=== PATIENT | male | born 1960 | race Caucasian/White ===

== ENCOUNTER → 2022-06-23 08:05 | Outpatient (CLI) | payer OTHER, SELFPAY ==
[2022-06-23 19:22] LABS: COVID19 - ORCAS (NP or Nasal) Negative (Negative)
== END ==
PROVIDERS: Family Provider Family Medicine; PCP Physician Assistant; Visit Provider Physician Assistant
DX: Z20.822 Contact with and (suspected) exposure to COVID-19 (principal); Z01.812 Encounter for preprocedural laboratory examination
CPT/HCPCS: U0003

== ENCOUNTER → 2022-07-18 10:30 | Outpatient (CLI) | payer OTHER, SELFPAY ==
[2022-07-18 19:21] LABS: Albumin 4.1 g/dL (3.5-5.0); BUN Creatinine Ratio 17.4 (6-22); Blood Urea Nitrogen 16 mg/dL (9-20); Calcium 9.2 mg/dL (8.4-10.2); Carbon Dioxide 26 mmol/L (22-32); Chloride 102 mmol/L (98-107); Estimated Glomerular Filt Rate > 60 mL/min (>60); Glucose 104 mg/dL (80-110); HEMOLYSIS < 15 (0-50); Potassium 4.3 mmol/L (3.4-5.1); Sodium 138 mmol/L (137-145)
[2022-07-18 19:23] LABS: Add Manual Diff / Slide Review NO; Basophils Absolute Auto 0 /uL (0-100); Basophils Percent Auto 0.3 % (0-2); Eosinophils Absolute Auto 100 /uL (0-450); Eosinophils Percent Auto 1.6 % (2-4); Hematocrit 36.1 % (41-53); Hemoglobin 12.1 g/dL (13.5-17.5); Lymphocytes Absolute Auto 1600 /uL (1100-4500); Lymphocytes Percent Auto 17.6 % (25-40); Mean Corpuscular HGB Conc 33.4 % (30-36); Mean Corpuscular Hemoglobin 31.3 PG (26-34); Mean Corpuscular Volume 93.6 fL (80-100); Monocytes Absolute Auto 600 /uL (0-900); Monocytes Percent Auto 6.9 % (3-14); Neutrophils Absolute Auto 6500 /uL (1500-7000); Neutrophils Percent Auto 73.6 % (50-75); Platelet Count 220 X10^3/uL (150-400); Red Blood Cell Count 3.86 X10^6/uL (4.5-5.9); Red Cell Distribution Width 14.4 % (11.6-14.8); White Blood Cell Count 8.8 X10^3/uL (4.5-11.0)
[2022-07-18 20:07] LABS: Creatinine Urine Random 42.7 mg/dL; Protein (Total) Urine Random 8 mg/dL (0-12); Protein Creatinine Ratio Urine 0.18 GRAM/24H
[2022-07-18 20:20] LABS: Appearance Urine UA CLEAR; Bilirubin Urine UA NEGATIVE (NEGATIVE); Color Urine UA YELLOW; Glucose Urine UA NEGATIVE (Negative); Ketones Urine UA NEGATIVE (NEGATIVE); Leukocyte Esterase Urine UA NEGATIVE (NEGATIVE); Nitrite Urine UA NEGATIVE (Negative); Occult Blood Urine UA NEGATIVE (Negative); Protein Urine UA NEGATIVE (Negative); Specific Gravity Urine UA <=1.005 (1.000-1.035); Urobilinogen Urine UA 0.2 E.U./dL (0.2)
[2022-07-18 20:25] LABS: Bacteria Urine None Seen; Culture Indicated Urine Cult Not Indicated; RBC Urine None Seen (0-5/HPF); Squamous Epithelial Cell Urine None Seen (0-5/HPF); WBC Urine 0-1/HPF (0-5/HPF)
== END ==
PROVIDERS: Family Provider Family Medicine; PCP Physician Assistant; Visit Provider Internal Medicine
DX: N17.9 Acute kidney failure, unspecified (principal)
CPT/HCPCS: 80069; 81001; 82570; 84156; 85025

== ENCOUNTER 2022-08-10 08:30 | Outpatient (RCR) | payer OTHER, SELFPAY | END 2022-08-10 10:30 | LOC: CAR 08:30 | PROVIDERS: Family Provider Family Medicine; PCP Physician Assistant; Referring Provider Internal Medicine; Visit Provider Internal Medicine | DX: I21.3 ST elevation (STEMI) myocardial infarction of unspecified site (principal) | CPT/HCPCS: 93798 ==

== ENCOUNTER → 2022-08-31 14:12 | Outpatient (CLI) | payer OTHER, SELFPAY ==
[2022-08-31 18:42] LABS: BUN Creatinine Ratio 17.6 (6-22); Blood Urea Nitrogen 15 mg/dL (9-20); Calcium 9.1 mg/dL (8.4-10.2); Carbon Dioxide 26 mmol/L (22-32); Chloride 104 mmol/L (98-107); Estimated Glomerular Filt Rate > 60 mL/min (>60); Glucose 113 mg/dL (80-110); HEMOLYSIS < 15 (0-50); Phosphorous 3.8 mg/dL (2.3-3.7); Potassium 4.2 mmol/L (3.4-5.1); Sodium 140 mmol/L (137-145)
== END ==
PROVIDERS: Family Provider Family Medicine; PCP Physician Assistant; Visit Provider Internal Medicine
DX: N17.9 Acute kidney failure, unspecified (principal); N18.9 Chronic kidney disease, unspecified; Z95.5 Presence of coronary angioplasty implant and graft
CPT/HCPCS: 80069

== ENCOUNTER → 2023-07-25 10:27 | Outpatient (CLI) | payer OTHER, SELFPAY ==
[2023-07-25 19:32] LABS: Cholesterol 120 mg/dL (140-199); HDL Cholesterol 43 mg/dL (40-60); LDL Cholesterol Calculated 48 mg/dL (<100); Triglycerides 145 mg/dL (35-150)
[2023-07-25 19:37] LABS: High Sensitivity CRP - Cardiac 1.1 mg/L (1.0-3.0)
== END ==
PROVIDERS: Family Provider Family Medicine; PCP Physician Assistant; Visit Provider Internal Medicine Cardiovascular Disease
DX: I25.10 Atherosclerotic heart disease of native coronary artery without angina pectoris (principal)
CPT/HCPCS: 80061; 86140

== ENCOUNTER 2025-06-06 14:09 | Emergency (ER) | payer MEDICARE, SELFPAY ==
[2025-06-06] VITALS (8 sets, daily range): BP systolic 128–129; BP diastolic 62–78; PULSE 49–60; RESP 18; TEMP 36.2; O2SAT 97–100; BMI 26.6
--- NOTE | 2025-06-06 14:26 | ED_ITS ---
HPI - Male Genitourinary General Chief complaint: Recheck/Abnormal Lab/Rx Stated complaint: 4days post prostate bx; incontinence; wobbly Time Seen by Provider: 06/06/25 14:15 Source: patient Mode of arrival: Ambulatory History of Present Illness HPI Narrative: 64y M hx cad x 1 stent, s/p prostate biopsy this past Sunday started to develop chills Sunday checked out by EMS with normal VS and did not see anyone. This restarted again despite being in hot tub twice to warm up. Pt denies fever, n/v/d, cough, sorethroat, chest, abd, back pain, sob, louis, or sick contacts. No UTI symptoms. Other than what is stated 14 pt ROS is negative. Related Data Previous Rx's ?Medication ?Instructions ?Recorded nitrofurantoin 100 mg PO Q12H 5 days #10 ca ps 06/06/25 monohydrate/macrocrystals 100 mg capsule (Macrobid) Allergies Allergy/AdvReac Type Severity Reaction Status Date / Time No Known Drug Allergies Allergy Verified 05/30/22 17:10 Review of Systems Review of Systems ROS Unobtainable: All systems reviewed & are unremarkable except as noted in HPI and below Patient History Medical History Cardiac arrest Renal failure (ARF), acute on chronic Surgical History Stented coronary artery Exam Narrative Exam Narrative: GENERAL: [64] year old patient appears stated age. Well-developed patient, in mild distress. HEAD: Atraumatic. Normocephalic. EYES: Pupils equal round and reactive. Extraocular motions intact. No scleral icterus. No injection or drainage. ENT: Nose without bleeding, purulent drainage. Throat without erythema, tonsillar hypertrophy or exudate. Airway patent. NECK: Trachea midline. Non tender CARDIOVASCULAR: Regular rate and rhythm without murmurs, gallops, or rubs. RESPIRATORY: Clear to auscultation. Breath sounds equal bilaterally. No wheezes, rales, or rhonchi. GASTROINTESTINAL: Abdomen soft, non-tender, nondistended. EXTREMITIES: No edema or joint tenderness. BACK: Nontender without deformity or crepitance. No flank tenderness. NEURO: AOx3. SKIN: No rash or erythema of visible areas Initial Vital Signs Initial Vital Signs: Vital Signs Pulse Rate 60 06/06/25 14:15 Pulse Oximetry 100 06/06/25 14:15 Course Orders Ordered: ED Orders 06/06/25 14:37 CXR [XR chest 2V] Stat 06/06/25 14:42 CBC Auto Diff [Complete Blood Count AUTO DIFF] Stat CMP [Comprehensive Metabolic Panel] Stat 06/06/25 14:50 Covid-19 + FLU A/B + RSV - PCR Stat 06/06/25 15:43 Urinalysis and Microscopic Stat Urine Culture Stat Discontinued Medications Lactated Ringer's (Lactated Ringers) 1,000 mls @ 1,000 mls/hr IV BOLUS ONE Stop: 06/06/25 15:39 Last Admin: 06/06/25 15:02 Dose: 1,000 mls/hr Documented By: MIRIAM Vital Signs Vital signs: Vital Signs - 8 hr 06/06/25 14:15 06/06/25 14:16 06/06/25 14:16 Temperature Pulse Rate 60 54 L Respiratory Rate Blood Pressure 128/62 Pulse Oximetry 100 100 Oxygen Delivery Method 06/06/25 14:21 06/06/25 14:30 Temperature 97.2 F L Pulse Rate 58 L 57 L Respiratory Rate 18 Blood Pressure 128/62 Pulse Oximetry 100 100 Oxygen Delivery Method Room Air MDM - Male Genitourinary Lab Data 06/06/25 14:42 06/06/25 14:42 Labs: Lab Results 06/06/25 06/06/25 06/06/25 Range/Units 14:42 14:50 15:43 WBC 4.8 (4.5-11.0) X10^3/uL RBC 4.62 (4.5-5.9) X10^6/uL Hgb 14.4 (13.5-17.5) g/dL Hct 41.8 (41-53) % MCV 90.6 (80-100) fL MCH 31.1 (26-34) PG MCHC 34.4 (30-36) % RDW 13.8 (11.6-14.8) % Plt Count 107 L (150-400) X10^3/uL Neut % (Auto) 61.3 (50-75) % Lymph % (Auto) 16.5 L (25-40) % [place] % (Auto) 20.2 H (3-14) % Eos % (Auto) 1.6 L (2-4) % Baso % (Auto) 0.4 (0-2) % Neut # (Auto) 2900 (5494-3326) /uL Lymph # (Auto) 800 L (9868-5715) /uL Cooper # (Auto) 1000 H (0-900) /uL Eos # (Auto) 100 (0-450) /uL Baso # (Auto) 0 (0-100) /uL Sodium 134 L (137-145) mmol/L Potassium 3.4 (3.4-5.1) mmol/L Chloride 99 (98-107) mmol/L Carbon Dioxide 29 (22-32) mmol/L BUN 15 (9-20) mg/dL Creatinine 0.78 (0.66-1.25) mg/dL Estimated GFR > 60 (>60) mL/min BUN/Creatinine Ratio 19.2 (6-22) Glucose 120 H (70-99) mg/dL Calcium 8.8 (8.4-10.2) mg/dL Total Bilirubin 0.6 (0.2-1.3) mg/dL AST 44 (17-59) IU/L ALT 28 (<50) IU/L Alkaline Phosphatase 66 (38-126) U/L Total Protein 6.8 (6.3-8.2) g/dL Albumin 4.0 (3.5-5.0) g/dL Globulin 2.8 (1.7-4.1) g/dL Albumin/Globulin Ratio 1.4 (1.0-2.8) Urine Color Dark yellow Urine Appearance Slightly cloudy Urine pH 6.5 (4.5-8.0) Ur Specific [place] 1.015 (1.000-1.035) Urine Protein Trace H (Negative) Urine Glucose (UA) Negative (Negative) g/dL Urine Ketones Negative (NEGATIVE) Urine Occult Blood 3+ H (Negative) Urine Nitrate Negative (Negative) Urine Bilirubin Negative (NEGATIVE) Urine Urobilinogen 1.0 (0.2) E.U./dL Ur Leukocyte Esterase 1+ H (NEGATIVE) Urine RBC 30-100/hpf H (0-5/HPF) Urine WBC 10-30/hpf H (0-5/HPF) Ur Squamous Epith Cells 0-1 /hpf (0-5/HPF) Urine Bacteria Few (2-10) H (None) Ur Culture Indicated? Specimen cultured Vol Urine Centrifuged 10ml (spun) SARS-CoV-2 (PCR) Negative (Negative) Influenza A (RT-PCR) Flu a negative (NEGATIVE) Influenza B (RT-PCR) Flu b negative (NEGATIVE) RSV (PCR) Negative (Negative) Imaging Data Chest x-ray: Radiologist's Impression: [address] [address] XRay Report Signed Patient: Humble Perry MR#: [id number] : 1960 Acct:[id number] Age/Sex: 64 / M Date of Service: 06/06/25 Loc: ED Accession Number: [id number] Procedure: XR chest 2V Ordering Provider: Christiano Pacheco D.O. PROCEDURE: XR CHEST 2V INDICATIONS: chills TECHNIQUE: 2 views of the chest were acquired. COMPARISON: None. FINDINGS: Surgical changes and devices: None. Lungs and pleura: Lungs are clear. No pleural effusions or pneumothorax. Mediastinum: Mediastinal contours are normal. Heart size is normal. Bones and chest wall: No suspicious bony abnormalities. Soft tissues appear unremarkable. IMPRESSION: No acute cardiopulmonary abnormality is seen. Dictated by: Jen Lovelace M.D. on 06/06/2025 at 14:12 Approved by: Jen Lovelace M.D. on 06/06/2025 at 14:12 [facility] Narrative Medical decision making narrative: Vital signs nurse triage note medication list previous ER visits in all imaging studies reviewed. Differential diagnosis includes UTI pneumonia sepsis dehydration. UA shows 3200 are HPF 10-30 WBC few bacteria +3 occult blood trace protein. Normal white count platelet 107. Patient given fluids and Rocephin here and will be DC home on Macrobid prescription. Discharge Plan Departure Patient Disposition: Home Clinical Impression: Acute UTI Instructions: DI for Urinary Tract Infection (UTI) Activity Restrictions/Additional Instructions: Return with new or worsening symptoms. Take your medicines directed. Keep hydrated. Follow up PCP and/or urologist at your next scheduled appointment. Prescriptions: New nitrofurantoin monohyd/m-cryst [Macrobid] 100 mg capsule 100 mg PO Q12H 5 Days Qty: 10 0RF Rx Instructions: must administer with a meal/food Referrals: Enma Hauser PA-C [Primary Care Provider, Medical] Stand Alone Forms: Patient Portal/API
--- NOTE | 2025-06-06 14:37 | DI.RAD.S_ITS ---
PROCEDURE: XR CHEST 2V INDICATIONS: chills TECHNIQUE: 2 views of the chest were acquired. COMPARISON: None. FINDINGS: Surgical changes and devices: None. Lungs and pleura: Lungs are clear. No pleural effusions or pneumothorax. Mediastinum: Mediastinal contours are normal. Heart size is normal. Bones and chest wall: No suspicious bony abnormalities. Soft tissues appear unremarkable. IMPRESSION: No acute cardiopulmonary abnormality is seen. Dictated by: Jen Lovelace M.D. on 06/06/2025 at 14:12 Approved by: Jen Lovelace M.D. on 06/06/2025 at 14:12
[2025-06-06 14:51] LABS: Add Manual Diff / Slide Review NO; Hematocrit 41.8 % (41-53); Hemoglobin 14.4 g/dL (13.5-17.5); Lymphocytes Absolute Auto 800 /uL (1100-4500); Mean Corpuscular HGB Conc 34.4 % (30-36); Mean Corpuscular Hemoglobin 31.1 PG (26-34); Mean Corpuscular Volume 90.6 fL (80-100); Platelet Count 107 X10^3/uL (150-400)
[2025-06-06] MEDS: LACTATED RINGERS 1,000 ML 1000 ML IV (15:02)
[2025-06-06 15:07] LABS: Alanine Aminotransferase 28 IU/L (<50); Albumin 4.0 g/dL (3.5-5.0); Albumin Globulin Ratio 1.4 (1.0-2.8); Alkaline Phosphatase 66 U/L (38-126); Blood Urea Nitrogen 15 mg/dL (9-20); Calcium 8.8 mg/dL (8.4-10.2); Carbon Dioxide 29 mmol/L (22-32); Chloride 99 mmol/L (98-107); Estimated Glomerular Filt Rate > 60 mL/min (>60); Globulin 2.8 g/dL (1.7-4.1); Glucose 120 mg/dL (70-99); HEMOLYSIS 31 (0-50); Potassium 3.4 mmol/L (3.4-5.1); Sodium 134 mmol/L (137-145); Total Protein 6.8 g/dL (6.3-8.2)
[2025-06-06 15:33] LABS: Influenza A - CEPHEID Flu A NEGATIVE (NEGATIVE); Influenza B - CEPHEID Flu B NEGATIVE (NEGATIVE)
[2025-06-06 15:34] LABS: COVID-19 CEPHEID 4-PLEX PCR Negative (Negative)
[2025-06-06 16:06] LABS: Appearance Urine UA Slightly Cloudy; Color Urine UA Dark Yellow; Glucose Urine UA NEGATIVE (Negative); Ketones Urine UA NEGATIVE (NEGATIVE); Occult Blood Urine UA 3+ (Negative); Protein Urine UA TRACE (Negative); Specific Gravity Urine UA 1.015 (1.000-1.035); pH Urine UA 6.5 (4.5-8.0)
[2025-06-06 16:07] LABS: Bilirubin Urine UA NEGATIVE (NEGATIVE); Culture Indicated Urine Specimen Cultured; Leukocyte Esterase Urine UA 1+ (NEGATIVE); Nitrite Urine UA NEGATIVE (Negative); Urobilinogen Urine UA 1.0 E.U./dL (0.2)
== END 2025-06-06 17:36 | disposition home or self-care (01) ==
PROVIDERS: Emergency Provider Family Medicine; PCP Physician Assistant
DX: N39.0 Urinary tract infection, site not specified (principal); R68.83 Chills (without fever)
CPT/HCPCS: 71046; 80053; 81001; 85025; 87086; 87637; 96361; 96374; 99283; 99284; J0696

== ENCOUNTER 2025-06-15 10:10 | Emergency (ER) | payer MEDICARE, OTHER, SELFPAY ==
[2025-06-15 10:14] VITALS: BP 115/66; PULSE 57; RESP 18; TEMP 36.6; O2SAT 99; BMI 25.7
[2025-06-15 11:11] LABS: Culture Indicated Urine Specimen Cultured
--- NOTE | 2025-06-15 11:22 | ED_ITS ---
HPI - Male Genitourinary <Lila Mendez PA-C - Last Filed: 06/15/25 13:38> General Chief complaint: Urogenital-Male Stated complaint: f/u on infection from last week Time Seen by Provider: 06/15/25 10:50 Source: patient Mode of arrival: Ambulatory History of Present Illness HPI Narrative: Mr. Perry is a pleasant 64-year-old male with a past medical history of CAD with stent, hyperlipidemia, prostate cancer with biopsy about 2 and half weeks ago at [facility] who presents to the emergency department for dysuria x 5 days. Patient was seen in the ER on 06/06/2025 and was diagnosed with a acute UTI following his prostate biopsy, he was treated with ceftriaxone in the ER followed by Otto at home. Patient states he finished the Macrobid on , his symptoms are getting much better, however after the antibiotic was completed his symptoms slowly started to return. He is now experiencing burning with urination. He denies any pain at rest. He is having very minimal hematuria. Denies abdominal pain, nausea, vomiting, diarrhea, constipation, fevers, chills. No back or flank pain. He feels normal otherwise. No antibiotic allergies. Related Data Previous Rx's ?Medication ?Instructions ?Recorded levofloxacin 750 mg tablet 750 mg PO DAILY 5 days #5 t abs 06/15/25 Allergies Allergy/AdvReac Type Severity Reaction Status Date / Time No Known Drug Allergies Allergy Verified 06/15/25 10:16 Review of Systems <Lila Mendez PA-C - Last Filed: 06/15/25 13:38> Review of Systems ROS Unobtainable: All systems reviewed & are unremarkable except as noted in HPI and below Patient History <Lila Mendez PA-C - Last Filed: 06/15/25 13:38> Medical History Cardiac arrest Renal failure (ARF), acute on chronic Surgical History Stented coronary artery Exam <Lila Mendez PA-C - Last Filed: 06/15/25 13:38> Narrative Exam Narrative: GENERAL: 64 year old patient appears stated age. Well-developed patient, in no acute distress. HEAD: Atraumatic. Normocephalic. EYES: No scleral icterus. No injection or drainage. NECK: Trachea midline. Cervical ROM intact. CARDIOVASCULAR: Regular rate and rhythm. RESPIRATORY: ?Nonlabored respirations. ?Speaking in clear, full sentences. ?Clear to auscultation. Breath sounds equal bilaterally. No wheezes, rales, or rhonchi. ? GASTROINTESTINAL: Abdomen soft, non-tender, nondistended. BS present. BACK: No CVA tenderness. NEURO: AOx3. ?Clear speech. ?Moves all 4 extremities appropriately. SKIN: No rash or erythema of visible areas Initial Vital Signs Initial Vital Signs: Vital Signs Temperature 97.8 F 06/15/25 10:14 Pulse Rate 57 L 06/15/25 10:14 Respiratory Rate 18 06/15/25 10:14 Blood Pressure 115/66 06/15/25 10:14 Pulse Oximetry 99 06/15/25 10:14 Oxygen Delivery Method Room Air 06/15/25 10:14 <DO Ameya Olivo Last Filed: 06/15/25 15:40> Initial Vital Signs Initial Vital Signs: Vital Signs Temperature 97.8 F 06/15/25 10:14 Pulse Rate 57 L 06/15/25 10:14 Respiratory Rate 18 06/15/25 10:14 Blood Pressure 115/66 06/15/25 10:14 Pulse Oximetry 99 06/15/25 10:14 Oxygen Delivery Method Room Air 06/15/25 10:14 Course <Lila Mendez PA-C - Last Filed: 06/15/25 13:38> Orders Ordered: ED Orders 06/15/25 10:15 Urine Culture Stat Urine Microscopic Stat Vital Signs Vital signs: Vital Signs - 8 hr 06/15/25 10:14 06/15/25 12:17 Temperature 97.8 F 98.0 F Pulse Rate 57 L 52 L Respiratory Rate 18 18 Blood Pressure 115/66 120/59 L Pulse Oximetry 99 100 Oxygen Delivery Method Room Air Room Air <DO Ameya Olivo Last Filed: 06/15/25 15:40> Orders Ordered: ED Orders 06/15/25 10:15 Urine Culture Stat Urine Microscopic Stat Vital Signs Vital signs: Vital Signs - 8 hr 06/15/25 10:14 06/15/25 12:17 Temperature 97.8 F 98.0 F Pulse Rate 57 L 52 L Respiratory Rate 18 18 Blood Pressure 115/66 120/59 L Pulse Oximetry 99 100 Oxygen Delivery Method Room Air Room Air MDM - Male Genitourinary <Lila Mendez PA-C - Last Filed: 06/15/25 13:38> Medical Records Attestation: I reviewed the patient's medical records. Lab Data Labs: Lab Results 06/15/25 Range/Units 10:15 Urine RBC 5-10/hpf H (0-5/HPF) Urine WBC 5-10/hpf H (0-5/HPF) Ur Squamous Epith Cells None seen (0-5/HPF) Urine Bacteria Many (>30) H (None) Ur Culture Indicated? Specimen cultured Vol Urine Centrifuged 10ml (spun) Urine Dip Bedside Urine Glucose Negative Bedside Urine Bilirubin - Negative Bedside Urine Ketone - Negative Urine Specific [place] 1.010 Bedside Urine Occult Blood + Bedside Urine pH 6.0 Bedside Urine Protein - Negative Bedside Urine Urobilinogen - Negative Bedside Urine Nitrite + Positive Bedside Urine Leukocytes +/- 15 Esterase [facility] Narrative Medical decision making narrative: 64-year-old male with a past medical history of CAD with stent, hyperlipidemia, prostate cancer with biopsy about 2 and half weeks ago at [facility] who presents to the emergency department for dysuria x 5 days. Differential diagnosis includes but is not limited to UTI, prostatitis, etc. On exam patient is in no acute distress, nontoxic-appearing, all vital signs within normal limits. Patient was seen in the ER on 06/06/2025 and diagnosed with acute UTI, treated with ceftriaxone in the ED, discharged on 5 days of Macrobid. Symptoms are improving however returned after completion of antibiotics. He is now experiencing dysuria, abdomen is soft and nontender, no flank pain. Point of care urinalysis and urine microscopic consistent with nitrite positive infection. Urine culture from 06/06/2025 revealed no growth. Given patient's UTI with recent prostate biopsy, we will treat with fluoroquinolone, levofloxacin 750 mg q.d. x5 days for complicated UTI treatment and a male patient. Discussed with the patient that he needs to speak with his urologist as soon as possible and let them know that he has been treated with antibiotics. Discussed black box warning of fluoroquinolones with the patient, recommended no exercise heavy lifting strenuous movement for the next few weeks. Discussed strict ER return precautions. Patient verbalized understanding of all information and is agreeable to plan. He is stable for discharge home. <Allyssa Eduardo, - Last Filed: 06/15/25 15:40> Lab Data Labs: Lab Results 06/15/25 Range/Units 10:15 Urine RBC 5-10/hpf H (0-5/HPF) Urine WBC 5-10/hpf H (0-5/HPF) Ur Squamous Epith Cells None seen (0-5/HPF) Urine Bacteria Many (>30) H (None) Ur Culture Indicated? Specimen cultured Vol Urine Centrifuged 10ml (spun) Urine Dip Bedside Urine Glucose Negative Bedside Urine Bilirubin - Negative Bedside Urine Ketone - Negative Urine Specific [place] 1.010 Bedside Urine Occult Blood + Bedside Urine pH 6.0 Bedside Urine Protein - Negative Bedside Urine Urobilinogen - Negative Bedside Urine Nitrite + Positive Bedside Urine Leukocytes +/- 15 Esterase Discharge Plan Departure Patient Disposition: Home Clinical Impression: Urinary tract infection Qualifiers: Urinary tract infection type: site unspecified Hematuria presence: with hematuria Qualified Code(s): N39.0 - Urinary tract infection, site not specified Instructions: DI for Urinary Tract Infection (UTI) Activity Restrictions/Additional Instructions: Dear Mr. Perry, Thank you for coming to the emergency department. Today you were evaluated for continued urinary symptoms. Your urine test was positive for infection. I am treating you with an antibiotic called levofloxacin once a day for the next 5 days, please complete the full course, however it is very important that you call your urologist as soon as possible and let them know that you have been dealing with urinary tract infections. Please rest, hydrate, return to the ER if you develop any fevers, pain, peristent new or worsening symptoms or other concerns. Please follow up with your primary care doctor within the next 2-3 days for ER follow-up. (If you do not have a PCP you can call [phone]. ?to schedule an appointment with an [facility] Primary Care Provider) IF YOU DEVELOP ANY NEW OR WORSENING SYMPTOMS, RETURN TO THE ER! Please read the attached instructions, they highlight more specific treatments and interventions for you at home. Thank you for letting me participate in your care, Lila Mendez PA-C Prescriptions: New levofloxacin 750 mg tablet 750 mg PO DAILY 5 Days Qty: 5 0RF Referrals: Enma Hauser PA-C [Primary Care Provider, Medical] Stand Alone Forms: Patient Portal/API ED Sign-out <Allyssa Eduardo DO - Last Filed: 06/15/25 15:40> Cosign ED Attending Cosepifanioature Attestation: I was immediately available in the department for consultation.
[2025-06-15 12:17] VITALS: BP 120/59; PULSE 52; RESP 18; TEMP 36.7; O2SAT 100
== END 2025-06-15 12:16 | disposition home or self-care (01) ==
PROVIDERS: Emergency Medicine; Emergency Provider Physician Assistant; PCP Physician Assistant
DX: N39.0 Urinary tract infection, site not specified (principal); Z85.46 Personal history of malignant neoplasm of prostate
CPT/HCPCS: 81003; 81015; 87077; 87086; 87186; 99281; 99282